=== PATIENT | male | born 1995 | race Caucasian/White ===

== ENCOUNTER 2018-10-17 11:30 | Emergency (ER) | payer OTHER | END 2018-10-17 12:10 | disposition home or self-care (01) | LOC: ER 11:30 ==

== ENCOUNTER → 2018-10-25 | Emergency (ER) | payer OTHER ==
[~2018-10-25] VITALS: Ht 180.3 cm; Wt 86.2 kg
[2018-10-25 13:44] VITALS: BP 120/80
== END | disposition home or self-care (01) ==
LOC: EDUNIT# 13:15 → ER 13:16
DX: S01.81XD Laceration without foreign body of other part of head, subsequent encounter (principal); X58.XXXD Exposure to other specified factors, subsequent encounter